=== PATIENT | female | born 1945 | race Caucasian/White ===

== ENCOUNTER 2024-05-06 16:42 | Emergency (ER) | payer OTHER ==
[2024-05-06 16:56] VITALS: RESP 18; BMI 28.7
[2024-05-06 19:30] LABS: BASO % 0.8 % (0-2.0); EOS % 1.2 % (0-4.5); HEMATOCRIT 38.5 % (32.4-45.2); HEMOGLOBIN 12.7 GM/dL (10.7-15.3); LYMPH % 27.3 % (8-40); MCH 30.8 pg (25.7-33.7); MEAN CELL VOLUME 93.4 fl (80-96); MEAN PLT VOLUME 8.3 fl (7.5-11.1); MONO % 9.7 % (3.8-10.2); PLATELET COUNT 248 10^3/uL (134-434); RBC 4.12 M/mm3 (3.60-5.2); RDW 12.9 % (11.6-15.6); WHITE BLOOD COUNT 9.9 K/mm3 (4.0-10.0)
[2024-05-06] MEDS ORDERED: ACETAMINOPHEN 325 MG TABLET (FP) ONE (19:35)
[2024-05-06] MEDS: ACETAMINOPHEN 325 MG TABLET (FP) PO ONE (19:43)
[2024-05-06 19:50] LABS: INR 1.03 (0.83-1.09); PROTHROMBIN TIME (PATIENT) 11.8 SEC (9.7-13.0)
[2024-05-06 19:53] LABS: ACTIVATED PTT 28.7 SECONDS (25.2-36.5)
[2024-05-06 20:03] LABS: POTASSIUM 4.6 mmol/L (3.5-5.1)
[2024-05-06 20:05] LABS: CALCIUM 9.1 mg/dL (8.5-10.1)
[2024-05-06 20:06] LABS: ALBUMIN 3.5 g/dl (3.4-5.0); BLOOD UREA NITROGEN 23.1 mg/dL (7-18); MAGNESIUM 2.3 mg/dL (1.8-2.4)
[2024-05-06 20:09] LABS: CREATININE 0.9 mg/dL (0.55-1.3)
[2024-05-06 20:11] LABS: TOT PROT 7.2 g/dl (6.4-8.2)
[2024-05-06 21:24] VITALS: BP 122/64; PULSE 72; TEMP 98.4
== END 2024-05-06 22:45 | disposition home or self-care (01) ==
LOC: JER 16:42
DX: S00.11XA Contusion of right eyelid and periocular area, initial encounter (principal); S80.212A Abrasion, left knee, initial encounter; W01.0XXA Fall on same level from slipping, tripping and stumbling without subsequent striking against object, initial encounter
CPT/HCPCS: 36415; 70450-TC; 72125-TC; 73562-TC-LT-FY; 80053; 83735; 85025; 85610; 85730; 86850; 86900; 86901; 99285-25